=== PATIENT | male | born 1990 ===

== ENCOUNTER → 2016-10-21 | Outpatient (REF) | payer OTHER ==
[2016-10-21 14:20] LABS: NON PROGRESSIVE MOTILITY (c) 19 %; PROGRESSIVE MOTILITY (a) 41 % (>=32); TOTAL MOTILITY 60 % (>=40)
[2016-10-21 14:21] LABS: % NORMAL FORMS 10 % (>=4); IMMOTILITY 40 %; SPERM# 61.3 M/Ejac (33-46); TOTAL FUNCTIONAL 5.8 M/Ejac.; TOTAL PROGRESSIVE SPERM 25.4 M/Ejac.
== END ==
LOC: M LAB REF 14:15
PROVIDERS: ATTEND Obstetrics & Gynecology
DX: N46.8 Other male infertility (principal)